=== PATIENT | female | born 1965 | race Caucasian/White ===

== ENCOUNTER → 2016-10-14 | Outpatient (CLI) | payer OTHER ==
[~2016-10-14] MED LIST: CYAN100073; ELET20TA PO; GABA1CAP PO; LORA-741 PO; MULT-506 PO; OXYC1CAP5 PO; SENNTAB23; muscle relaxer
--- NOTE | 2016-10-14 16:00 | DIAGNOSTIC IMAGING REPORT ---
MRI OF THE LUMBAR SPINE WITHOUT CONTRAST CLINICAL HISTORY: Low back pain with left-sided radiculopathy. COMPARISON STUDY: Lumbar spine MRI October 13, 2011 and lumbar spine radiographs March 22, 2014. TECHNIQUE: Utilizing a 1.5 Meggan magnet and dedicated coil, multiplanar, multiecho imaging of the lumbar spine was performed without IV contrast. FINDINGS: For purposes of numbering on this exam, the L5-S1 disc space is assigned to axial image 23 of 25. 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 No intracanalicular mass or fluid collection is present. The conus terminates at the L2-L3 level. Paravertebral soft tissues are unremarkable. L1-2: The central canal and neural foramen are patent. L2-3: The central canal and neural foramen are patent. L3-4: The central canal and neural foramen are patent. L4-5: The central canal and neural foramen are patent. L5-S1: There is mild disc bulge. The central canal is patent. There is mild narrowing of both neural foramen. IMPRESSION: 1. 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 2. No central canal stenosis. 3. Low-lying conus located at the L2-L3 level. 4. Mild bilateral neural foraminal stenosis at L5-S1. Electronically signed by: Carl Redman M.D. 10/14/2016 3:58 PM Dictated Date/Time: 10/14/2016 3:27 PM
== END | disposition home or self-care (01) ==
LOC: C.MRIBC 14:36
PROVIDERS: ATTEND Anesthesiology
DX: M54.5 Low back pain (principal); M79.605 Pain in left leg; Q76.49 Other congenital malformations of spine, not associated with scoliosis